=== PATIENT | female | born 1955 | race Caucasian/White ===

== ENCOUNTER 2018-07-17 11:30 | Outpatient (AMBR) | payer MEDICARE, MEDICAID, SELFPAY ==
--- NOTE | 2018-07-03 08:56 | PTNOTE_ITS ---
PT OP Initial Eval Patient Information Visit Reasons: cervical Medical Diagnosis: C/S pain Treatment Dx #1: neck pain Start of Care: 07/03/18 Date of Onset: 3 months ago Initial Assessment Subjective Pt is 62 yr old female with complaints of neck pain and L wrist pain x3 months. Today it's 04/30 today and she isn't not taking pain meds. She had cervical sx in April 2016 with some residual neck pain and headaches every couple days. PLOF: the R shoulder had pain with lifting about 8 months prior to sx like a pinched nerve. Sx aggravated: sleeping on R shoulder, reaching OH, propping head on pillow. PMH: arthritis in feet, hands, DM, hypothyroid, CTS B x2, allergies, trigger fingers, kidney problems, hernia, C/S fusion x4 levels April 2016 Objective C/S AROM: R 50 deg, L 50 deg Ext: 40 deg Flexion 34 deg DTR: B UE 2+ C5, C6 Pepper's: neg B R shoulder Strength: FF 4-/5 Abduction: 4-/5 ER 4-/5 TTP: suboccipitals, upper trapezius mm's Special testing: Roc Brewer - Chhaya: - Distraction: feels good Obriens - NDI: 48% moderate self-perceived disability Program Professional: R: 46 lbs, L 40 lbs Assessment Pt presents with decreased C/S ROM and overlying myofascial tightness and pain consistent with surgical Hx of C4-T1 ACSF. 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 This may be contributing to UE ssx including wrist pain and tightness and parasthesias. Pt sits with increased thoracic kyphosis and rounded shoulders. Good response to light manual cervical distraction. Short Term and [facility] Goals 1. Ind with HEP 2. Decreased TTP of cervical extensors from mod to min 3. Decreased NDI from 48% to 38% Treatment Plan Pt requires skilled therapy in order to learn HEP, improve shoulder ROM, improve function. Will set up 90 day POC in order to complete visits. Rx may include: 1. Manual therapy 2. Therex 3. Modalities as indicated such as estim, hot pack Frequency and Duration 2x a week for 6 weeks Certification Dates: 07/03/18 to 09/30/18 Office Procedures PT Procedures PT Date of Service: 07/03/18 OP PT Eval Mod Complex 30 minutes: Yes
--- NOTE | 2018-07-05 12:44 | PT.ODAYNRPT ---
PT Outpatient Daily Note Date of Service: July 05, 2018 OP Daily Note Visit Reasons: cervical Outpatient Physical Therapy Treatment Date: 07/05/18 Subjective: pt reported having neck pain upon visit. Objective: see flow sheet. 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 pt was using fair resistance with exercises. followed by STM to the neck in which palpated kristina on both sides of the neck. pt tolerated well and is aware of the kristina. advised pt to massage at home as well to decrease tension. Plan: continue POC per PT. Length of Time (minutes) of Treatment: 30 Minutes Office Procedures PT Outpatient G-Codes Date of Service PT Date of Service: 07/03/18 G-Codes Changing & Maintaining Body Post Body Position Current Status G-Code: G8981: CK 40-60% Body Position Goal Status G-Code: G8982: CJ 20-40% PT Procedures PT Date of Service: 07/05/18 Therapeutic Exercise 15 minutes: Yes Manual Draw Bench Operator Helper 15 minutes: Yes PT Procedures PT Date of Service: 07/03/18 OP PT Eval Mod Complex 30 minutes: Yes
--- NOTE | 2018-07-05 12:51 | PTNOTE_ITS ---
PT Outpatient Daily Note Date of Service: July 05, 2018 OP Daily Note Visit Reasons: cervical Outpatient Physical Therapy Treatment Date: 07/05/18 Subjective: pt reported having neck pain upon visit. Objective: see flow sheet. Assessment: pt was having increased in pain with head charrer strengthening exercises which caused her to take breaks. pt was using fair resistance with exercises. followed by STM to the neck in which palpated kristina on both sides of the neck. pt tolerated well and is aware of the kristina. advised pt to massage at home as well to decrease tension. Plan: continue POC per PT. Length of Time (minutes) of Treatment: 30 Minutes Office Procedures PT Outpatient G-Codes Date of Service PT Date of Service: 07/03/18 G-Codes Changing & Maintaining Body Post Body Position Current Status G-Code: G8981: CK 40-60% Body Position Goal Status G-Code: G8982: CJ 20-40% PT Procedures PT Date of Service: 07/05/18 Therapeutic Exercise 15 minutes: Yes Manual Piccoloist 15 minutes: Yes PT Procedures PT Date of Service: 07/03/18 OP PT Eval Mod Complex 30 minutes: Yes
--- NOTE | 2018-07-08 15:46 | PT.ODAYNRPT ---
PT Outpatient Daily Note Date of Service: July 08, 2018 OP Daily Note Visit Reasons: cervical Outpatient Physical Therapy Treatment Date: 07/08/18 Subjective: My arms were very sore after last visit from that rubber thing (theraband flexbar) Objective: See F/S for therex MT: STM to suboccipitals and manual C/S distraction x5' Assessment: Pt is very deconditioned and has moderate tissue irritability of UE's and cervical extensors with light resistive exercises. Plan: Continue per POC Length of Time (minutes) of Treatment: 30 Minutes Office Procedures PT Outpatient G-Codes Date of Service PT Date of Service: 07/03/18 G-Codes Changing & Maintaining Body Post Body Position Current Status G-Code: G8981: CK 40-60% Body Position Goal Status G-Code: G8982: CJ 20-40% PT Procedures PT Date of Service: 07/05/18 Therapeutic Exercise 15 minutes: Yes Manual Tetryl Screen Operator 15 minutes: Yes PT Procedures PT Date of Service: 07/08/18 Therapeutic Exercise 30 minutes: Yes PT Procedures PT Date of Service: 07/03/18 OP PT Eval Mod Complex 30 minutes: Yes
--- NOTE | 2018-07-08 15:51 | PTNOTE_ITS ---
PT Outpatient Daily Note Date of Service: July 08, 2018 OP Daily Note Visit Reasons: cervical Outpatient Physical Therapy Treatment Date: 07/08/18 Subjective: My arms were very sore after last visit from that rubber thing ( theraband flexbar) Objective: See F/S for therex MT: STM to suboccipitals and manual C/S distraction x5' Assessment: Pt is very deconditioned and has moderate tissue irritability of UE' s and cervical extensors with light resistive exercises. Plan: Continue per POC Length of Time (minutes) of Treatment: 30 Minutes Office Procedures PT Outpatient G-Codes Date of Service PT Date of Service: 07/03/18 G-Codes Changing & Maintaining Body Post Body Position Current Status G-Code: G8981: CK 40-60% Body Position Goal Status G-Code: G8982: CJ 20-40% PT Procedures PT Date of Service: 07/05/18 Therapeutic Exercise 15 minutes: Yes Manual Staff Electronic Warfare Officer 15 minutes: Yes PT Procedures PT Date of Service: 07/08/18 Therapeutic Exercise 30 minutes: Yes PT Procedures PT Date of Service: 07/03/18 OP PT Eval Mod Complex 30 minutes: Yes
--- NOTE | 2018-07-10 12:58 | PT.ODAYNRPT ---
PT Outpatient Daily Note Date of Service: July 10, 2018 OP Daily Note Visit Reasons: cervical Outpatient Physical Therapy Treatment Date: 07/10/18 Subjective: My neck is sore today, not sure why. My hands are feeling weaker Objective: See F/S for therex MT: STM to suboccipitals and manual C/S distraction x5' Assessment: Pt is very deconditioned and has moderate tissue irritability of UE's and cervical extensors with light resistive exercises. Plan: Continue per POC Length of Time (minutes) of Treatment: 30 Minutes Office Procedures PT Outpatient G-Codes Date of Service PT Date of Service: 07/03/18 G-Codes Changing & Maintaining Body Post Body Position Current Status G-Code: G8981: CK 40-60% Body Position Goal Status G-Code: G8982: CJ 20-40% PT Procedures PT Date of Service: 07/05/18 Therapeutic Exercise 15 minutes: Yes Manual Senior Actuarial Analyst 15 minutes: Yes PT Procedures PT Date of Service: 07/08/18 Therapeutic Exercise 30 minutes: Yes PT Procedures PT Date of Service: 07/10/18 Therapeutic Exercise 30 minutes: Yes PT Procedures PT Date of Service: 07/03/18 OP PT Eval Mod Complex 30 minutes: Yes
--- NOTE | 2018-07-10 13:05 | PTNOTE_ITS ---
PT Outpatient Daily Note Date of Service: July 10, 2018 OP Daily Note Visit Reasons: cervical Outpatient Physical Therapy Treatment Date: 07/10/18 Subjective: My neck is sore today, not sure why. My hands are feeling weaker Objective: See F/S for therex MT: STM to suboccipitals and manual C/S distraction x5' Assessment: Pt is very deconditioned and has moderate tissue irritability of UE' s and cervical extensors with light resistive exercises. Plan: Continue per POC Length of Time (minutes) of Treatment: 30 Minutes Office Procedures PT Outpatient G-Codes Date of Service PT Date of Service: 07/03/18 G-Codes Changing & Maintaining Body Post Body Position Current Status G-Code: G8981: CK 40-60% Body Position Goal Status G-Code: G8982: CJ 20-40% PT Procedures PT Date of Service: 07/05/18 Therapeutic Exercise 15 minutes: Yes Manual Head Wrestling Coach 15 minutes: Yes PT Procedures PT Date of Service: 07/08/18 Therapeutic Exercise 30 minutes: Yes PT Procedures PT Date of Service: 07/10/18 Therapeutic Exercise 30 minutes: Yes PT Procedures PT Date of Service: 07/03/18 OP PT Eval Mod Complex 30 minutes: Yes
--- NOTE | 2018-07-15 12:06 | PTNOTE_ITS ---
PT Outpatient Daily Note Date of Service: July 15, 2018 OP Daily Note Visit Reasons: cervical Outpatient Physical Therapy Treatment Date: 07/15/18 Subjective: My neck is sore today at the base of my skull, not sure why. My wrists are hurting more. Objective: See F/S for therex MT: STM to suboccipitals and manual C/S distraction x5' Assessment: Pt has moderate tissue irritability of UE's and cervical extensors with light resistive exercises consistent with sx Hx and stenosis. The L wrist is positive for Tinel's sign consistent with possible carpal tunnel. Slow progress with goals so far. Plan: Continue per POC Length of Time (minutes) of Treatment: 30 Minutes Office Procedures PT Outpatient G-Codes Date of Service PT Date of Service: 07/03/18 G-Codes Changing & Maintaining Body Post Body Position Current Status G-Code: G8981: CK 40-60% Body Position Goal Status G-Code: G8982: CJ 20-40% PT Procedures PT Date of Service: 07/05/18 Therapeutic Exercise 15 minutes: Yes Manual Day Care Director 15 minutes: Yes PT Procedures PT Date of Service: 07/08/18 Therapeutic Exercise 30 minutes: Yes PT Procedures PT Date of Service: 07/10/18 Therapeutic Exercise 30 minutes: Yes PT Procedures PT Date of Service: 07/03/18 OP PT Eval Mod Complex 30 minutes: Yes PT Procedures PT Date of Service: 07/15/18 Therapeutic Exercise 30 minutes: Yes
--- NOTE | 2018-07-17 12:10 | PT.ODAYNRPT ---
PT Outpatient Daily Note Date of Service: July 17, 2018 OP Daily Note Visit Reasons: cervical Outpatient Physical Therapy Treatment Date: 07/17/18 Subjective: Saw the MD yesterday, said to continue therapy Objective: See F/S for therex Assessment: Pt has moderate tissue irritability of UE's and cervical extensors with light resistive exercises consistent with sx Hx and stenosis. The L wrist is positive for Tinel's sign consistent with possible carpal tunnel. Slow progress with goals so far. Plan: Continue per POC Length of Time (minutes) of Treatment: 30 Minutes Office Procedures PT Outpatient G-Codes Date of Service PT Date of Service: 07/03/18 G-Codes Changing & Maintaining Body Post Body Position Current Status G-Code: G8981: CK 40-60% Body Position Goal Status G-Code: G8982: CJ 20-40% PT Procedures PT Date of Service: 07/05/18 Therapeutic Exercise 15 minutes: Yes Manual Cube Cutter 15 minutes: Yes PT Procedures PT Date of Service: 07/08/18 Therapeutic Exercise 30 minutes: Yes PT Procedures PT Date of Service: 07/10/18 Therapeutic Exercise 30 minutes: Yes PT Procedures PT Date of Service: 07/17/18 Therapeutic Exercise 30 minutes: Yes PT Procedures PT Date of Service: 07/03/18 OP PT Eval Mod Complex 30 minutes: Yes PT Procedures PT Date of Service: 07/15/18 Therapeutic Exercise 30 minutes: Yes
== END 2018-07-17 12:05 | disposition home or self-care (01) ==
PROVIDERS: PCP Nurse Practitioner Family; Referring Provider Family Medicine; Visit Provider Internal Medicine Rheumatology
DX: I10 Essential (primary) hypertension (principal)
CPT/HCPCS: 97110; 97140; 97162; G8981; G8982